=== PATIENT | female | born 1975 | race Caucasian/White ===

== ENCOUNTER 2022-08-20 10:24 | Emergency (ER) | payer OTHER, SELFPAY ==
[2022-08-20 10:37] VITALS: BP 139/82; PULSE 78; RESP 16; TEMP 36.8; O2SAT 100
--- NOTE | 2022-08-20 11:07 | ED.FEMALEGU ---
HPI - Female Genitourinary General Chief complaint: Urogenital-Female Stated complaint: possible UTI Time Seen by Provider: 08/20/22 11:07 Source: patient and RN notes reviewed Mode of arrival: ambulatory Limitations: no limitations History of Present Illness HPI Narrative: 47-year-old female presented for concern for UTI. She endorses burning with urination for the last 3 days. She denies associated abdominal pain, flank pain, hematuria, urgency or frequency. She denies fevers or chills. She is taking azo for symptoms. She states this feels like her previous UTIs. Irregular menses due to IUD. Related Data Allergies Allergy/AdvReac Type Severity Reaction Status Date / Time No Known Allergies Allergy Verified 08/20/22 11:18 Review of Systems Review of Systems: CONSTITUTIONAL: Denies body aches, fever, chills, or sweats. CARDIOVASCULAR: Denies chest pain, palpitations, or edema. RESPIRATORY: Denies cough or dyspnea. GASTROINTESTINAL: Denies abdominal pain, nausea, vomiting, or diarrhea. GENITOURINARY: Reports dysuria, denies frequency, urgency, hematuria, flank pain SKIN: Denies rash, itching, or wounds. MUSCULOSKELETAL: Denies back pain or myalgia. PMFSH Comments At time of signature, I have reviewed and agree with nursing past medical, surgical, social and family history unless otherwise noted. Please see nursing chart for further information. There is no relevant family history pertinent to the presenting complaint Exam Narrative: GENERAL: Well-appearing and in no acute distress. HEAD: Normocephalic EYES: EOMI. . ENT: Mucous membranes pink and moist. NECK: Normal AROM. Supple. CHEST: No respiratory distress. Clear to auscultation. HEART: Regular rate and rhythm. ABDOMEN: Soft, nontender, nondistended, normal active bowel sounds. No CVA tenderness SKIN: Warm, dry, no rash. NEURO: No focal deficits. Alert and oriented x3. Gait steady. PSYCH: Normal affect. Course Course Emergency Course: Patient is aware of diagnosis, understands and agrees to treatment plan. Anticipatory guidance given. Patient agrees to follow-up as directed and is aware of reasons to seek care at the emergency department. Portions of this record may have been created with voice recognition software Level of Care: Express Care Visit Vital Signs Vital signs: Vital Signs Temperature 98.2 F 08/20/22 10:37 Pulse Rate 78 12/28/22 10:37 Respiratory Rate 16 08/20/22 10:37 Blood Pressure 139/82 08/20/22 10:37 Pulse Oximetry 100 08/20/22 10:37 Temperature 98.2 F 08/20/22 10:37 Pulse Rate 78 08/20/22 10:37 Respiratory Rate 16 08/20/22 10:37 Blood Pressure 139/82 08/20/22 10:37 Pulse Oximetry 100 08/20/22 10:37 Reviewed MDM - Female Genitourinary MDM Narrative Medical decision making narrative: Results of urine reviewed with patient. Advised supportive measures and signs/symptoms to go to the ER. Pt is appropriate for outpt treatment and f/u. Differential Diagnosis Differential diagnosis: Likely urinary tract infection and cystitis Lab Data Labs: Urine Glucose Negative Reference Range: Negative Urine Bilirubin Negative Reference Range: Negative Urine Ketone Negative Reference Range: Negative Urine Specific [place] 1.020 Reference Range:1.001-1.035 Urine Blood Trace Reference Range: Negative * * Urine pH 7.0 Reference Range: 5.0-9.0 Urine Protein Negative Reference Range:
== END 2022-08-20 11:21 | disposition home or self-care (01) ==
PROVIDERS: Emergency Provider Nurse Practitioner Family
DX: R30.0 Dysuria (principal)
CPT/HCPCS: 81003; 87086; 99213; G0463

== ENCOUNTER 2024-02-19 10:12 | Emergency (ER) | payer OTHER, SELFPAY ==
[2024-02-19 10:22] VITALS: BP 135/77; PULSE 91; RESP 16; TEMP 36.6; O2SAT 99
--- NOTE | 2024-02-19 10:32 | ED.URI ---
HPI - URI/Sore Throat General Chief Complaint: Skin/Abscess/Foreign Body Stated Complaint: Sinus Infection, Scalp Skin Infection Time Seen by Provider: 02/19/24 10:32 Source: patient, RN notes reviewed and old records reviewed Mode of arrival: ambulatory Limitations: no limitations History of Present Illness HPI Narrative: 48 year old female who presents to [facility] with complaints of sinus congestion and drainage for one week duration with sinus pain and pressure and post nasal drainage, no fevers reported states swelling to posterior neck glands. Patient reports that she has been taking allergy medication and also nasal spray OTC like Afrin. Patient cautioned to not use Afrin for more than 3 day interval due to rebound swelling effects. Patient also has rash to the posterior right aspect of hairline that is mildly red and scaly is using ketoconazole to rash since 12/29/2023 with some improvement, reports needs more ointment. MD elicited complaint: rhinorrhea and nasal congestion Pertinent past history: sinusitis Onset (ago): week(s) (1) Severity: moderate Able to tolerate fluids by mouth: Yes Treatments prior to arrival: other (allergy medication and nasal spray) Related Data Home Medications Medication Instructions Recorded Confirmed ketoconazole 2 % topical cream applic topical 02/19/24 levonorgestrel 21 mcg/24 hr (up to 1 device intrauterine ONCE 02/19/24 02/19/24 8 years) 52 mg intrauterine device (Mirena) prednisone 10 mg tablet mg 02/19/24 Allergies Allergy/AdvReac Type Severity Reaction Status Date / Time No Known Allergies Allergy Verified 02/19/24 10:23 Review of Systems Review of Systems: CONSTITUTIONAL: Denies malaise, chills, sweats, or fever. EYES: Denies visual changes, redness, or discharge. ENT: Reports rhinorrhea, congestion, sinus pain, no otalgia and no sore throat. CARDIOVASCULAR: Denies chest pain, palpitations, or edema. RESPIRATORY: Reports no acute cough.? Denies dyspnea. GASTROINTESTINAL: Denies abdominal pain, nausea, vomiting, diarrhea SKIN: Denies rash or itching. MUSCULOSKELETAL: Denies myalgia. NEUROLOGIC: Denies headache. All systems reviewed & are unremarkable except as noted in HPI and below PMFSH Past Medical History Medical History Presence of Mirena IUD Surgical History Surgical History (Updated 02/21/24 @ 12:34 by Deb Crowell NP) H/O foot surgery bunion removed Previous section x2 Social History Social History (Updated 02/21/24 @ 12:33 by Deb Crowell NP) Smoking status: Current every day smoker Tobacco type: e-cigarettes/vaping Alcohol intake: current Alcohol use details: social Substance use type: does not use Living arrangements: with family Gender identity (if verbalized by the patient): Female Comments At time of signature, agree with nursing past medical, surgical, social and family history. There is no relevant family history pertinent to the presenting complaint Exam Narrative: GENERAL: Well-appearing, well-nourished, and in no acute distress. HEAD: Normocephalic EYES: PERRLA, conjunctivae clear ENT: Nares clear, turbinates edematous and erythematous, clear to light yellow discharge, sinus pressure.. Mucous membranes moist. TM pearly hebert with dull light reflex bilaterally; no tragal tenderness. Oropharynx erythematous without lesions. Tonsils not enlarged and without exudate, no drooling, no hoarseness, no trismus, uvula midline.post nasal drainage NECK: Supple. No lymphadenopathy CHEST: Clear to auscultation, breath sounds equal. No wheezing, rhonchi, rales, or stridor. No respiratory distress, speaks in full sentences. HEART: Regular rate and rhythm. No murmur heard. SKIN: Warm, dry,rash to posterior hairline red and scaly some itching NEURO: Alert and oriented x3. PSYCH: Normal mood and affect Course Course Emergency Course: Patient is aware of diagnos
== END 2024-02-19 11:08 | disposition home or self-care (01) ==
PROVIDERS: Emergency Provider Registered Nurse; PCP Physician Assistant
DX: J32.1 Chronic frontal sinusitis (principal); L25.9 Unspecified contact dermatitis, unspecified cause; F17.290 Nicotine dependence, other tobacco product, uncomplicated
CPT/HCPCS: 99213; G0463

== ENCOUNTER 2024-04-08 15:09 | Emergency (ER) | payer OTHER, SELFPAY ==
--- NOTE | 2024-04-08 15:15 | ED.URI ---
HPI - URI/Sore Throat General Chief Complaint: Upper Respiratory Infection Stated Complaint: sinus congetion/ headache Time Seen by Provider: 04/08/24 15:15 Source: patient Mode of arrival: ambulatory Limitations: no limitations History of Present Illness HPI Narrative: Latia is a 48-year-old female who presents today with a chief complaint of sinus pressure and a headache. She states she had a upper respiratory infection about 3 weeks ago which got better, however, about a week ago she developed worsening sinus pressure, cough, nasal congestion, and headache. She has also felt feverish and states the highest temperature she had at home was 99.2? F. She denies sore throat, shortness of breath, nausea, or vomiting. MD elicited complaint: sore throat and nasal congestion Related Data Home Medications Medication Instructions Recorded Confirmed levonorgestrel 21 mcg/24 hr (up to 1 device intrauterine ONCE 02/19/24 02/19/24 8 years) 52 mg intrauterine device (Mirena) Allergies Allergy/AdvReac Type Severity Reaction Status Date / Time No Known Allergies Allergy Verified 04/08/24 15:25 Review of Systems Review of Systems: Pertinent positives per HPI. Patient denies any rash, visual changes, dizziness, shortness of breath, chest pain, palpitations, nausea, vomiting, diarrhea, constipation, abdominal pain, or any urinary issues. PMFSH Past Medical History Medical History Presence of Mirena IUD Surgical History Surgical History H/O foot surgery bunion removed Previous section x2 Social History Social History Smoking status: Current every day smoker Tobacco type: e-cigarettes/vaping Alcohol intake: current Alcohol use details: social Substance use type: does not use Living arrangements: with family Gender identity (if verbalized by the patient): Female Comments At the time of my signature, I reviewed and agree with the nursing past medical, surgical, social, and family history. There is no relevant family history pertinent to the patient complaint. Exam Narrative: General: Well-developed, well nourished, in no apparent distress Head: Normocephalic, atraumatic Eyes: Pupils equally round and reactive to light bilaterally, EOM intact, sclera and conjunctive clear, no discharge, lids normal Ears: TMs intact and clear, ear canals clear, no drainage, grossly hearing normal. Nose: Nares patent, maxillary sinus tenderness. Mouth: Oral pharynx non-erythematous without lesions or masses, good dentition, MMM. Neck: Supple, trachea midline, no enlargement of anterior or posterior cervical nodes, no thyroid masses or goiter palpable. Cardio: Regular rate and rhythm, s1 and s2 normal, no murmur appreciated. Resp: Clear to auscultation bilaterally, no rhonchi, rales, wheezing or rubs Course Course Emergency Course: Portions of this record may have been created with voice recognition software. Level of Care: Express Care Visit Vital Signs Vital signs: Vital signs reviewed MDM - URI/Sore Throat MDM Narrative Medical decision making narrative: At the time of visit patient is resting comfortably on the exam table. Patient appears to be nontoxic. Plan: I suspect patient has an upper respiratory infection. Prescription for steroids was sent to the pharmacy and reviewed with the patient. Supportive measures were discussed with the patient and they voiced understanding discharge instructions and agrees to treatment plan. Return precautions reviewed Differential Diagnosis Differential diagnosis: Likely upper respiratory infection, sinusitis, viral infection, influenza, pharyngitis and other (COVID) Discharge Plan Discharge Clinical Impression: Upper respiratory infection Qualifiers: URI type: unspecified URI Qualified Code(s): J06.9 - Acute upper res
[2024-04-08 15:24] VITALS: BP 142/77; PULSE 92; RESP 18; TEMP 36.9; O2SAT 96
[2024-04-08 15:26] VITALS: BP 142/77; PULSE 92; RESP 18; TEMP 36.9; O2SAT 96
== END 2024-04-08 15:48 | disposition home or self-care (01) ==
PROVIDERS: Emergency Provider Nurse Practitioner Family; PCP Physician Assistant
DX: J06.9 Acute upper respiratory infection, unspecified (principal); F17.290 Nicotine dependence, other tobacco product, uncomplicated
CPT/HCPCS: 99213; G0463